=== PATIENT | female | born 1980 | race Caucasian/White ===

== ENCOUNTER 2024-06-15 22:04 | Emergency (ER) | payer OTHER, SELFPAY ==
[2024-06-15 22:08] VITALS: BP 162/103
[2024-06-15 22:33] LABS: % Basophils 0.1 % (0-2); % Immature Granulocytes 0.3 % (0-0.5); % Lymphocytes 37.5 % (20.5-51.1); % Monocytes 7.2 % (1.7-9.3); % Neutrophils 52.9 % (42.2-75.2); Absolute Eosinophils 0.2 10^3/uL (0-0.7); Absolute Lymphocytes 2.9 10^3/uL (1.2-3.4); Absolute Monocytes 0.6 10^3/uL (0.1-0.6); Absolute Neutrophils 4.1 10^3/uL (1.4-6.5); Hematocrit 38.1 % (37.0-47.0); Hemoglobin 13.1 g/dL (12.0-16.0); Mean Corp Hgb Conc. 34.4 g/dL (33.0-37.0); Mean Corpuscular Hgb 29.4 pg (27.0-31.0); Mean Corpuscular Volume 85.6 fL (81.0-99.0); Mean Platelet Volume 9.4 fL (7.4-10.4); Nucleated Red Blood Cells % 0 %; Platelet Count 247 10^3/uL (130-400); Red Blood Cell Count 4.45 10^6/uL (4.20-5.40); Red Cell Dist. Width 13.5 % (11.5-14.5); White Blood Cell Count 7.7 10^3/uL (4.8-10.8)
[2024-06-15 22:45] LABS: ALT (SGPT) 29 U/L (0-35); AST (SGOT) 24 U/L (14-36); Albumin 4.8 g/dl (3.5-5.0); Alkaline Phosphatase 89 U/L (38-126); Blood Urea Nitrogen 13 mg/dl (7-17); Calcium 9.6 mg/dl (8.4-10.2); Carbon Dioxide 24 mmol/L (22-30); Chloride 107 mmol/L (98-107); Glucose 171 mg/dl (70-99); Potassium 4.3 mmol/L (3.5-5.1); Sodium 142 mmol/L (135-145); Total Bilirubin 1.4 mg/dl (0.2-1.3); Total Protein 7.6 g/dl (6.3-8.2); eGFR > 60.00
[2024-06-15 23:05] LABS: Troponin I < 0.012 ng/ml
[2024-06-15 23:16] LABS: TSH Reflex To Free T4 2.17 uIU/ml (0.47-4.68)
[2024-06-15 23:54] VITALS: BP 133/81
--- NOTE | 2024-06-16 01:02 | ED.GENMED ---
History of Present Illness
General
Chief Complaint: Seizure
Time Seen by Provider: 06/16/24 01:01
History of Present Illness
History of Present Illness:
TIME OF INITIAL ENCOUNTER: 1 AM
HPI: At about 3 PM today, the daughter witnessed an event where she seemed to have some shaking-like activity. The patient described it as 'felt like I was being pulled underwater'. There was no postictal state, there is no tongue stark, there is
no urinary incontinence. Daughter states that she does not use any drugs or alcohol. There is no benzo use. Daughter did mention that the patient does have a 1-year-old at home and the patient has had poor sleep and the daughter questions if
sleep deprivation could be a contributing factor.
EXAM:
GENERAL: Well appearing in no distress
HEENT: Moist oral mucosa, alopecia noted
CARDIOVASCULAR: No murmurs, normal heart rate, regular rhythm, No chest wall tenderness
PULMONARY: No respiratory distress, breath sounds are clear and equal
ABDOMEN: Soft with no peritoneal signs, no tenderness
NEUROLOGIC: Excellent strength all extremities, no coordination deficits, excellent finger-nose testing, no facial asymmetry
PSYCHIATRIC: Appropriate mental status, normal insight and judgement
EXTREMITIES: Nontender, no edema, moves all extremities equally
SKIN: No rash, no lesions
NUMBER AND COMPLEXITY OF PROBLEMS ADDRESSED AT THE ENCOUNTER
� Chronic conditions affecting care: Has had appendectomy and
� Acute Exacerbation and/or Progression of Chronic Illness: This is an acute problem
� Differential Diagnosis includes: Effects of sleep deprivation, dehydration, electrolyte abnormality, seizure less likely
AMOUNT AND/OR COMPLEXITY OF DATA TO BE REVIEWED AND ANALYZED
� I performed an independent evaluation of and my interpretation is:
EKG: Sinus 88, leftward axis deviation, no acute ST abnormality
CT: CAT scan of the brain shows no acute abnormality
X-rays:
Laboratory Studies: White count and hemoglobin are normal, chemistries unremarkable including normal bicarb, troponin less than 0.012, TSH normal
Other:
� Review of other/old records: No old records available for review
� Clinical information was obtained by an independent historian: I spoke to the daughter at bedside who is an excellent historian and translated without
� Prescriptions/Medications Considered but not given:
� Further testing considered but not performed:
RISK OF COMPLICATIONS AND/OR MORBIDITY OR MORTALITY OF PATIENT MANAGEMENT
� Social determinants of health affecting care: Lives at home, does not speak [place]
� Discussion with other providers:
� Escalation of care including admission/observation vs risk of discharge considered: Unclear etiology of patient's event but I have very low suspicion for seizure. There is no tongue bite stark, no urinary incontinence, no
postictal state, workup including CT imaging is unremarkable. She is very well-appearing at time of discharge and is eager to go home.
ANY OTHER UPDATES:
Phy Exam
Physical Exam
Physical Exam:
See HPI
Course
Orders/Labs/Results
Orders:
Orders
06/15/24 22:14
Electrocardiogram (*1) Urgent
Reason for Study: Other
Other Reason for Exam: seizure
CT Head W/o Iv Contrast Urgent
Comment:
Reason For Exam: seizure
06/15/24 22:15
EKG- Treatment ONCE
06/15/24 22:18
Complete Blood Count/With Diff Urgent
Comprehensive Metabolic Panel Urgent
Magnesium Urgent
TSH Reflex To Free T4 Urgent
Troponin I Urgent
Abnormal Lab Results
06/15/24
22:18
Glucose 171 H mg/dl
(70-99)
Total Bilirubin 1.4 H mg/dl
(0.2-1.3)
06/15/24 22:18
06/15/24 22:18
Vital Signs
Initial and Last Documented VS:
Initial Vital Signs
Temp Pulse Resp BP Pulse Ox
36.7 C 89 20 162/103 96
06/15/24 22:08 06/15/24 22:08 06/15/24 22:08 06/15/24 22:08 06/15/24 22:08
Last Documented Vital Signs
Temp Pulse Resp BP Pulse Ox
36.7 C 76 18 133/81 98
06/15/24 22:08 06/15/24 23:54 06/15/24 23:54 06/15/24 23:54 06/15/24 23:54
*Critical Care Note
Total Time (30-74mins, 75-104mins- exclusive of procedures): Not Applicable
ED Attending Note
-
Portions of this chart may have been created with voice recognition software.� Occasional wrong word or��sound alike� substitutions may have occurred due to the inherent limitations of voice recognition software.
Discharge Plan
Departure
Referrals:
Cece Turk DO [Family Provider] -
Interventions
Interventions:
*General Assessment Last Done: 06/15/24 22:08
*Neglect/Abuse Screening Last Done: 06/15/24 23:56
*ED- Fall Risk Assessment Last Done: 06/15/24 23:56
ED- Cardiac Assessment Last Done: 06/15/24 23:56
ED- Neurological Assessment Last Done: 06/15/24 23:55
Discharge Date and Time
Print Language: SYRIAC
== END 2024-06-16 01:29 | disposition home or self-care (01) ==
LOC: EMR 22:04
PROVIDERS: Emergency Medicine; EMERGENCY PHYSICIAN Emergency Medicine; FAMILY PHYSICIAN Family Medicine
DX: Z00.00 Encounter for general adult medical examination without abnormal findings (principal); R56.9 Unspecified convulsions
CPT/HCPCS: 99285; 70450; 80053; 83735; 84443; 84484; 85025; 93005